=== PATIENT | female | born 1980 | race Caucasian/White ===

== ENCOUNTER → 2018-02-04 11:42 | Outpatient (CLI) | payer BC, SELFPAY ==
--- NOTE | 2018-02-04 11:57 | US_ITS ---
STUDY: ULTRASOUND TRANSVAGINAL CLINICAL: Female, 37 years old. Irregular menses. TECHNIQUE: Transabdominal and Transvaginal COMPARISON: None. FINDINGS: Uterus measures 12.0 x 6.0 x 3.7 cm and is normal in echotexture. There are no focal uterine masses. The endometrium measures 11 mm and is hyperechoic. Normal uterine cervix. Right ovary is not identified. Normal left ovary, measuring 3.4 x 2.9 x 1.4 cm. There are multiple follicles without a dominant cyst. There is no free fluid in the pelvis. US/Transvaginal Non- IMPRESSION: Normal uterus and left ovary. Right ovary not visualized. Electronically Signed: Efrain Chan, at 22:39 EDT Tel , Service support ,
--- NOTE | 2018-02-04 11:57 | US_ITS ---
STUDY: ULTRASOUND TRANSVAGINAL CLINICAL: Female, 37 years old. Irregular menses. TECHNIQUE: Transabdominal and Transvaginal COMPARISON: None. FINDINGS: Uterus measures 12.0 x 6.0 x 3.7 cm and is normal in echotexture. There are no focal uterine masses. The endometrium measures 11 mm and is hyperechoic. Normal uterine cervix. Right ovary is not identified. Normal left ovary, measuring 3.4 x 2.9 x 1.4 cm. There are multiple follicles without a dominant cyst. There is no free fluid in the pelvis. US/Pelvic (Non ) IMPRESSION: Normal uterus and left ovary. Right ovary not visualized. Electronically Signed: Efrain Chan, at 22:39 EDT Tel , Service support ,
[2018-02-04 13:09] LABS: Prolactin 10.5 ng/mL; T4 Free Direct 1.12 ng/dL (0.76-1.46); Thyroid Stim Hormone (TSH) 1.22 uIU/mL (0.358-3.74)
[2018-02-06 00:10] LABS: DHEA Sulfate 98.8 ug/dL (57.3-279.2)
[2018-02-06 08:40] LABS: Testosterone Free 1.5 pg/mL (0.0-4.2)
[2018-02-10 10:29] LABS: 17-Hydroxyprogesterone 91 ng/dL (.)
== END ==
PROVIDERS: Family Provider Family Medicine; PCP Family Medicine; Visit Provider Obstetrics & Gynecology
DX: E28.2 Polycystic ovarian syndrome (principal)
CPT/HCPCS: 36415; 76830; 76856; 82627; 83498; 84146; 84402; 84439; 84443; 93976; 82626

== ENCOUNTER 2020-08-31 09:11 | Outpatient (RCR) | payer MEDICAID, SELFPAY | END 2020-08-31 23:59 | disposition home or self-care (01) | LOC: NS 09:11 | PROVIDERS: PCP Family Medicine; Visit Provider Family Medicine | DX: Z71.3 Dietary counseling and surveillance (principal); E66.01 Morbid (severe) obesity due to excess calories | CPT/HCPCS: 97802 ==

== ENCOUNTER → 2022-06-14 | Outpatient (CLI) | payer MEDICAID, SELFPAY ==
[2022-06-23 10:22] LABS: HPV APTIMA, High Risk Negative (Negative)
== END | disposition home or self-care (01) ==
LOC: LABSPEC 06-17 10:42
PROVIDERS: PCP Family Medicine; Visit Provider Obstetrics & Gynecology
DX: Z12.4 Encounter for screening for malignant neoplasm of cervix (principal)
CPT/HCPCS: 87624; 88175; G0145

== ENCOUNTER → 2022-06-25 | Outpatient (CLI) | payer MEDICAID, SELFPAY ==
--- NOTE | 2022-06-25 13:48 | BI_ITS ---
MAMMOGRAPHY - BILATERAL SCREENING REASON FOR EXAM: Female, 42 years old. Routine annual screening examination. PERTINENT HISTORY: Aunts with breast cancer. TECHNIQUE: Digital bilateral breast elvin (3D mammographic acquisition) in the CC and MLO projections. 2-D mediolateral oblique (MLO) and craniocaudad (CC) views of both breasts were obtained. CAD: Full Field Digital Mammography with Computer Added Detection was performed. COMPARISON: Comparison is made with prior outside examination of 05/25/2020. FINDINGS: Breast Composition: The breasts are heterogeneously dense, which may obscure small masses. There are no dominant masses or suspicious calcifications. No other significant abnormalities are identified. There has been no significant change since the prior study. BI/SCRN MAMM (CAD)W/ELVIN BILAT IMPRESSION: Stable bilateral screening mammogram. Yearly follow-up mammogram recommended. (A) ASSESSMENT CATEGORY: BIRADS Category 1: Negative. A letter regarding these results will be sent to the patient by the facility within 30 days. Approximately 10% of breast cancers are not detected by mammography. A normal mammogram should not delay biopsy of a clinically suspicious abnormality. [id number] Electronically Signed: Julio Brizuela MD at 14:48 EST ,
== END | disposition home or self-care (01) ==
LOC: OPBI 13:46
PROVIDERS: PCP Family Medicine; Referring Provider Obstetrics & Gynecology; Visit Provider Obstetrics & Gynecology
DX: Z12.31 Encounter for screening mammogram for malignant neoplasm of breast (principal); Z80.3 Family history of malignant neoplasm of breast
CPT/HCPCS: 77063; 77067